=== PATIENT | female | born 1970 | race Caucasian/White ===

== ENCOUNTER 2021-07-07 08:21 | Day surgery (SDC) | payer OTHER ==
[~2021-07-07 08:21] MED LIST: HYOSCYAMINE0.125 M1 SL; INTESTINEX680 M1 PO; LASIX20 MG PO; PERCOCET 5-3251 EACH PO; TYLENOL325 MG PO
== END 2021-07-07 16:15 | disposition home or self-care (01) ==
LOC: AMB-ENDOS 08:21
PROVIDERS: ATTEND Surgery
DX: K63.89 Other specified diseases of intestine (principal); K59.00 Constipation, unspecified; N80.5 Endometriosis of intestine